=== PATIENT | female | born 1945 | race Two or more races ===

== ENCOUNTER 2025-05-28 11:31 | Emergency (ER) | payer MEDICARE, OTHER ==
[~2025-05-28] VITALS: Ht 160 cm; Wt 55.5 kg
--- NOTE | 2025-05-28 12:31 | DVH ---
CLINICAL HISTORY: sob TECHNIQUE: Single view of the chest was obtained. COMPARISON: None FINDINGS: The heart size and pulmonary vasculature are normal. The lungs are clear. IMPRESSION: NO ACUTE CARDIOPULMONARY PROCESS.
[2025-05-28 13:40] LABS: Hematocrit 43.4 % (36.0-46.0); Hemoglobin 14.8 g/dL (12.2-16.2); Mean Corpuscular Hemoglobin 32.7 pg (28.0-32.0); Mean Corpuscular Volume 96.2 fL (80.0-100.0); Nucleated Red Blood Cells % 0.1 %
[2025-05-28 13:47] LABS: Chloride 103 mmol/L (98-107); Potassium 4.2 mmol/L (3.5-5.1); Sodium 142 mmol/L (136-145)
[2025-05-28 13:48] LABS: Anion Gap 11 (5-15); Calcium 9.6 mg/dL (8.7-10.4); Carbon Dioxide 28 mmol/L (20-31)
[2025-05-28 13:53] LABS: BUN/Creatinine Ratio 11.9 (10.0-20.0); Blood Urea Nitrogen 12 mg/dL (9-23); Glucose 86 mg/dL (74-106)
[2025-05-28 14:33] LABS: Urine Protein, UAD Negative (Negative)
--- NOTE | 2025-05-28 14:46 | ED.PDOC ---
History of Present Illness HPI Comments 79-year-old female presents to the ER with prior medical history of COPD, uses 2 L of O2 at home when needed chief complaint of a fall/shortness of breath. Patient reports on falling two weeks ago but has not having right-sided lung pain when coughing since yesterday. Patient has been having a productive cough with yellow phlegm. Denies any other symptoms at this time. Denies chills, fever, N/V/D, CP. No other associated symptoms, modifiers, recent injuries or sick contacts present at this time. Chief Complaint: Shortness of Breath Time Seen by MD: 12:00 Reviewed Notes: Nurses Notes, Medications, Allergies Allergies: Coded Allergies: NO KNOWN ALLERGIES (Unverified , 05/28/25) Information Source: Patient Mode of Arrival: Ambulatory Severity: Moderate Timing: Hours Duration: Since onset, Hours Prehospital treatment: None Past Medical History PAST MEDICAL HISTORY: COPD Past Medical History (Other): Uses 2 L of O2 when needed Surgical History: Denies all surgeries WATCH GUARD GATE History: No Pertinent WATCH GUARD GATE History Family History Family History: Reviewed,noncontributory to illness, Unknown Social History Smoker: Non-Smoker Alcohol: Denies ETOH Use Drugs: Denies Drug Use Lives In: Home Constitutional: denies: chills, diaphoresis, fatigue, fever, malaise, sweats, weakness, others EENTM: denies: blurred vision, double vision, ear bleeding, ear discharge, ear drainage, ear pain, ear ringing, eye pain, eye redness, hearing loss, mouth pain, mouth swelling, nasal discharge, nose bleeding, nose congestion, nose pain, photophobia, tearing, throat pain, throat swelling, voice changes, others Respiratory: reports: cough, others (Right-sided Lung pain when coughing ); denies: hemoptysis, orthopnea, SOB at rest, shortness of breath, SOB with excertion, stridor, wheezing Cardiovascular: denies: chest pain, dizzy spells, diaphoresis, Dyspnea on exertion, edema, irregular heart beat, left arm pain, lightheadedness, palpitations, PND, syncope, others Gastrointestinal: denies: abdomen distended, abdominal pain, blood streaked bowels, constipated, diarrhea, dysphagia, difficulty swallowing, hematemesis, melena, nausea, poor appetite, poor fluid intake, rectal bleeding, rectal pain, vomiting, others Genitourinary: denies: abnormal vagina bleeding, burning, dyspareunia, dysuria, flank pain, frequency, hematuria, incontinence, pain, , vagina discharge, urgency, others Neurological: denies: dizziness, fainting, headache, left sided numbness, left sided weakness, numbness, paresthesia, pre-existing deficit, right sided numbness, right sided weakness, seizure, speech problems, tingling, tremors, weakness, others Musculoskeletal: denies: back pain, gout, joint pain, joint swelling, muscle pain, muscle stiffness, neck pain, others Integumetry: denies: bruises, change in color, change in hair/nails, dryness, laceration, lesions, lumps, rash, wounds, others Allergic/Immunocompromised: denies: Difficulty Healing, Frequent Infections, Hives, Itching, others Hematologic/Lymphatic: denies: anemia, blood clots, easy bleeding, easy bruising, swollen glands, others Endocrine: denies: excessive hunger, excessive sweating, excessive thirst, excessive urination, flushing, intolerance to cold, intolerance to heat, unexplained weight gain, unexplained weight loss, others Psychiatric: denies: anxiety, bipolar disorder, depression, hopeless, panic disorder, schizophrenia, sleepless, suicidal, others All Other Systems: Reviewed and Negative Physical Exam Exam Comments Ecchymosis of the left face under the eye General Appearance: No Apparent Distress, Normal HEENT: Normal ENT Inspection, Pharynx Normal, TMs Normal Neck: Full Range of Motion, Non-Tender, Normal, Normal Inspection Respiratory: Chest Non-Tender, Lungs Clear, No Accessory Muscle Use, No Respiratory Distress, Normal Breath Sounds Cardiovascular: No Edema, No JVD, No Murmur, No Gallop, Normal Peripheral Pulses, Regular Rate/Rhythm Breast Exam: Deferred Gastrointestinal: No Organomegaly, Non Tender, No Pulsatile Mass, Normal Bowel Sounds, Soft Genitalia: Deferred Pelvic: Deferred Rectal: Deferred Extremities: No calf tenderness, Normal capillary refill, Normal inspection, Normal range of motion, Non-tender, No pedal edema Musculoskeletal : Apperance: Normal Neurologic: Alert, die polisher II-XII nml as Tested, No Motor Deficits, Normal Affect, Normal Mood, No Sensory Deficits Cerebellar Function: Normal Reflexes: Normal Skin: Dry, Normal Color, Warm Lymphatic: No Adenopathy Was a procedure done? Was a procedure done?: No EKG EKG : Pulse Rate (adult): 95 [place]: Normal Cardiac Rhythm: NSR Block: None Hypertrophy: None ST: Normal Differential Dx Considerations may include: See MDM X-Ray, Labs, Meds, VS Vital Signs Date Time Temp Pulse Resp B/P (MAP) Pulse Ox O2 Delivery O2 Flow Rate FiO2 05/28/25 15:50 98.9 100 18 156/77 (103) 85 98.9 05/28/25 14:47 95 05/28/25 11:54 95 05/28/25 11:41 97.7 110 20 120/70 92 97.7 Lab Test 05/28/25 14:09 05/28/25 12:48 05/28/25 12:29 Range/Units Troponin I High Sensitivity 6 6 </=34 ng/L White Blood Count 8.1 4.4-10.8 10^3/uL Red Blood Count 4.51 4.0-5.20 10^6/uL Hemoglobin 14.8 12.2-16.2 g/dL Hematocrit 43.4 36.0-46.0 % Mean Corpuscular Volume 96.2 80.0-100.0 fL Mean Corpuscular Hemoglobin 32.7 H 28.0-32.0 pg Mean Corpuscular Hemoglobin Concent 34.0 32.0-36.0 g/dL Red Cell Distribution Width 13.5 11.8-14.3 % Platelet Count 171 140-450 10^3/uL Mean Platelet Volume 8.9 6.9-10.8 fL Neutrophils (%) (Auto) 78.7 37.0-80.0 % Lymphocytes (%) (Auto) 15.3 10.0-50.0 % Monocytes (%) (Auto) 5.1 0.0-12.0 % Eosinophils (%) (Auto) 0.8 0.0-7.0 % Basophils (%) (Auto) 0.1 0.0-2.0 % Neutrophils # (Auto) 6.4 1.6-8.6 10 ^3/uL Lymphocytes # (Auto) 1.2 0.4-5.4 10 ^3/uL Monocytes # (Auto) 0.4 0-1.3 10 ^3/uL Eosinophils # (Auto) 0.1 0-0.8 10 ^3/uL Basophils # (Auto) 0 0-0.2 10 ^3/uL Nucleated Red Blood Cells 0.1 % Sodium Level 142 136-145 mmol/L Potassium Level 4.2 3.5-5.1 mmol/L Chloride Level 103 98-107 mmol/L Carbon Dioxide Level 28 20-31 mmol/L Anion Gap 11 5-15 Blood Urea Nitrogen 12 9-23 mg/dL Creatinine 1.01 0.550-1.02 mg/dL Glomerular Filtration Rate Calc 57 >90 mL/min BUN/Creatinine Ratio 11.9 10.0-20.0 Serum Glucose 86 74-106 mg/dL Calcium Level 9.6 8.7-10.4 mg/dL Urine Color Yellow Yellow Urine Clarity Clear Clear Urine pH 6.0 5.0-9.0 Urine Specific [place] 1.014 1.001-1.035 Urine Protein Negative Negative Urine Ketones Negative Negative Urine Blood Negative Negative /uL Urine Nitrite Negative Negative Urine Bilirubin Negative Negative Urine Urobilinogen Normal Negative mg/dL Urine Leukocyte Esterase 2+ Negative /uL Urine RBC 1 0 - 4 /hpf Urine Microscopic WBC 17 H 0-5 /HPF Urine Squamous Epithelial Cells Few <5 /hpf Urine Bacteria None seen None Seen /hpf Urine Hyaline Casts Few 0 - 2 /lpf Urine Glucose Normal Normal mg/dL Time of 1ST Reevaluation: 12:30 Reevaluation 1ST: Unchanged Patient Education/Counseling: Diagnosis, Treatment, Prognosis Family Education/Counseling: No Family Present Additional Information MEDICAL DECISION MAKING (HIGH COMPLEXITY 02726): The patient is a 79-year-old female with known COPD who uses 2 L of oxygen as needed at home, presenting with worsening shortness of breath and generalized weakness. Her presentation is consistent with acute on chronic respiratory failure likely secondary to a COPD exacerbation. Data Reviewed / Independent Interpretation: All diagnostic studies obtained in the ED were independently reviewed by me: CBC: benign, no leukocytosis or anemia contributing to dyspnea. BMP: benign, without electrolyte abnormalities or renal dysfunction. Troponin: normal, making acute coronary syndrome less likely. EKG: independently interpreted as nonischemic, without arrhythmia or ischemic changes. Chest X-ray: independently reviewed and benign, without pneumonia, pneumothorax, or acute infiltrates. Despite benign testing, the patient exhibits worsening oxygen requirement beyond her baseline and increased work of breathing, placing her at high risk for respiratory decompensation. Assessment, Differential & Management: Differential diagnosis includes COPD exacerbation, acute on chronic respiratory failure, pneumonia (despite benign imaging), pulmonary embolism, viral respiratory illness, heart failure exacerbation, and metabolic causes of d yspnea. The combination of worsening hypoxia, weakness, and increased oxygen needs strongly indicates COPD exacerbation with acute on chronic respiratory failure. ED management included: Duoneb bronchodilator treatments Systemic steroids to reduce airway inflammation Azithromycin for COPD exacerbation coverage Supplemental oxygen titrated to maintain adequate saturation Continuous cardiac and respiratory monitoring Frequent reassessment of respiratory effort and response to therapy Despite treatment, the patient continues to require oxygen above her baseline with persistent dyspnea, placing her at risk for impending respiratory failure. She requires inpatient admission for continued respiratory support, bronchodilator therapy, steroid taper, monitoring, and escalation if needed (e.g., BiPAP). Risk / Disposition: This is an acute illness with significant risk of morbidity, requiring active management, monitoring, and a decision for hospitalization. The combination of high-risk symptoms, data interpretation, and treatment complexity meets Level 5 MDM criteria. CRITICAL CARE TIME 36 MINUTES A total of 36 minutes of critical care time was provided, exclusive of separately billable procedures. Critical care was required due to the immediate risk of life-threatening deterioration from acute on chronic hypoxic respiratory failure in the setting of COPD exacerbation. Critical care interventions included: Continuous monitoring of respiratory effort and oxygenation Titration and escalation of supplemental oxygen Administration and monitoring of steroids, Duonebs, and azithromycin Frequent bedside reassessments for progression toward respiratory failure Independent interpretation of EKG, CXR, and laboratory studies Development and adjustment of the acute respiratory management plan Coordination of care with nursing staff and the admitting hospital team High-intensity medical decision making throughout her ED stay The patients worsening hypoxia and COPD exacerbation placed her at high risk for respiratory collapse, necessitating critical care. SEPSIS Sepsis Screen Date sepsis recognized/suspect: May 28, 2025 Time Sepsis recognized/suspect: 1145 Recent Procedure: No On Antibiotic Therapy: No Respiratory Rate >20: No Heart Rate >90: No Temp<36 C (96.8 F) or >38.3 C: No SBP <90 or MAP <65 mmHG: No New Acute Mental Status Change: No Is the patient on CPAP, BIPAP,: No Physician Orders Electrocardigram (05/28/25 11:46) Chest Portable (05/28/25 12:03) Azithromycin Tablet (Zithromax Tablet) (05/28/25 16:45) Albuterol Medneb (Ventolin Medneb) (05/28/25 16:45) Ipratropium Medneb (Atrovent Medneb) (05/28/25 16:45) Methylprednisolone Sod Succ (Solu Medrol (05/28/25 16:45) Vital Signs Date Time Temp Pulse Resp B/P (MAP) Pulse Ox O2 Delivery O2 Flow Rate FiO2 05/28/25 15:50 98.9 100 18 156/77 (103) 85 98.9 05/28/25 14:47 95 05/28/25 11:54 95 05/28/25 11:41 97.7 110 20 120/70 92 97.7 Laboratory Tests Test 05/28/25 12:48 White Blood Count 8.1 10^3/uL (4.4-10.8) Departure 1 Departure Time of Disposition: 16:42 Impression: Primary Impression: Acute and chronic respiratory failure Additional Impressions: COPD exacerbation Shortness of breath Disposition: ADMITTED INPATIENT Admit to: Tele Condition: Guarded Critical Care Note Critical Care Time?: Yes Stability Stability form required: No I personally scribed for BRANDON NAIK MD ([email or web address]) on 05/28/25 at 14:46. Electronically submitted by Zana Borja ([place]). I personally scribed for BRANDON NAIK MD ([email or web address]) on 05/28/25 at 14:47. Electronically submitted by Zana Borja ([employer] [place]). BRANDON NAIK MD May 28, 2025 14:46
[2025-05-28] MEDS: IPRATROPIUM BROM 0.5 MG/2.5ML INH SOL NEB ONE (16:53)
[2025-05-28] MEDS: ALBUTEROL SULF 2.5 MG/0.5ML(0.5%) NEB SOLN NEB ONE (16:54)
[2025-05-28] MEDS: AZITHROMYCIN 250 MG TAB PO ONE (16:59)
[2025-05-28] MEDS: methylPREDNISolone SOD SUCC 125 MG/2 ML VL IV ONE (17:00)
[2025-05-28 17:29] VITALS: BP 140/110; PULSE 95; RESP 22; TEMP 98.1; O2SAT 91
--- NOTE | 2025-05-28 19:19 | ECG ---
[facility] Test Date: 2025-05-28 Test Time: 11:54:35 Pat Name: INOCENTE ROSAS Department: [facility] ED Patient ID: [facility]-[id number] Room: Gender: F Gill Box Tender: maranda : 1945 Requested By: BRANDON NAIK Order Number: [id number] Reading MD: Wojciech Cheng Measurements Intervals [place] Rate: 95 P: 85 MI: 135 QRS: 127 QRSD: 129 T: -16 QT: 389 QTc: 489 Interpretive Statements Sinus rhythm Multiple ventricular premature complexes Right atrial enlargement Right bundle branch block Lateral infarct, age indeterminate Electronically Signed On 05-31-2025 17:51:43 PST by Wojciech Cheng Please click the below link to view image of tracing.
== END 2025-05-28 17:27 | disposition left against medical advice (07) ==
LOC: ER 11:31
DX: J96.20 Acute and chronic respiratory failure, unspecified whether with hypoxia or hypercapnia (principal); J44.1 Chronic obstructive pulmonary disease with (acute) exacerbation
CPT/HCPCS: 36415; 71045; 80048; 81001; 84484; 85025; 93005; 94640; 96374; 99285; J2919

== ENCOUNTER 2025-05-30 11:58 | Emergency (ER) | payer MEDICARE ==
[~2025-05-30] VITALS: Ht 165.1 cm; Wt 56.0 kg
[2025-05-30 12:16] VITALS: TEMP 97.8
--- NOTE | 2025-05-30 12:25 | ED.PDOC ---
HPI Comments 79 year old female with PMHx COPD presents to the ED with a chief complaint of chest pain onset 3 days. Patient was seen in this ED on 05/28/25, due to shortness of breath, productive cough with yellow phlegm. Patient was admitted, decided to leave. She states symptoms have worsened, is also experiencing chest pain. Patient returned to ED, states she is willing to be admitted. Denies fever, chills, headache, dizziness, nausea, vomiting, diarrhea, numbness/tingling. No other symptoms or modifying factors present at this time. Chief Complaint: Chest Pain Time Seen by MD: 12:10 Reviewed Notes: Medications, Allergies Allergies: Coded Allergies: NO KNOWN ALLERGIES (Unverified , 05/28/25) Information Source: Patient Mode of Arrival: Ambulatory Severity: Moderate Timing: Days Duration: Since onset Prehospital treatment: None Location: Chest (L) Radiation: No Radiation Quality: Sharp Onset: At Rest Cardiac Risk Factors: Other PE Risk Factors: None History of: None Modifying Factors: Nothing Past Medical History PAST MEDICAL HISTORY: COPD Surgical History: Denies all surgeries TRANSLATOR/INTERPRETER History: No Pertinent TRANSLATOR/INTERPRETER History Family History Family History: Reviewed,noncontributory to illness, Unknown Social History Smoker: Non-Smoker Alcohol: Denies ETOH Use Drugs: Denies Drug Use Lives In: Home Constitutional: denies: chills, diaphoresis, fatigue, fever, malaise, sweats, weakness, others EENTM: denies: blurred vision, double vision, ear bleeding, ear discharge, ear drainage, ear pain, ear ringing, eye pain, eye redness, hearing loss, mouth pain, mouth swelling, nasal discharge, nose bleeding, nose congestion, nose pain, photophobia, tearing, throat pain, throat swelling, voice changes, others Respiratory: denies: cough, hemoptysis, orthopnea, SOB at rest, shortness of breath, SOB with excertion, stridor, wheezing, others Cardiovascular: reports: chest pain; denies: dizzy spells, diaphoresis, Dyspnea on exertion, edema, irregular heart beat, left arm pain, lightheadedness, palpitations, PND, syncope, others Gastrointestinal: denies: abdomen distended, abdominal pain, blood streaked bowels, constipated, diarrhea, dysphagia, difficulty swallowing, hematemesis, melena, nausea, poor appetite, poor fluid intake, rectal bleeding, rectal pain, vomiting, others Genitourinary: denies: abnormal vagina bleeding, burning, dyspareunia, dysuria, flank pain, frequency, hematuria, incontinence, pain, , vagina discharge, urgency, others Neurological: denies: dizziness, fainting, headache, left sided numbness, left sided weakness, numbness, paresthesia, pre-existing deficit, right sided numbness, right sided weakness, seizure, speech problems, tingling, tremors, weakness, others Musculoskeletal: denies: back pain, gout, joint pain, joint swelling, muscle pain, muscle stiffness, neck pain, others Integumetry: denies: bruises, change in color, change in hair/nails, dryness, laceration, lesions, lumps, rash, wounds, others Allergic/Immunocompromised: denies: Difficulty Healing, Frequent Infections, Hives, Itching, others Hematologic/Lymphatic: denies: anemia, blood clots, easy bleeding, easy bruising, swollen glands, others Endocrine: denies: excessive hunger, excessive sweating, excessive thirst, excessive urination, flushing, intolerance to cold, intolerance to heat, unexplained weight gain, unexplained weight loss, others Psychiatric: denies: anxiety, bipolar disorder, depression, hopeless, panic disorder, schizophrenia, sleepless, suicidal, others All Other Systems: Reviewed and Negative Physical Exam General Appearance: Normal HEENT: Normal ENT Inspection, Pharynx Normal, TMs Normal Neck: Full Range of Motion, Non-Tender, Normal, Normal Inspection Respiratory: Chest Non-Tender, Lungs Clear, No Accessory Muscle Use, No Respiratory Distress, Normal Breath Sounds Cardiovascular: No Edema, No JVD, No Murmur, No Gallop, Normal Peripheral Pulses, Regular Rate/Rhythm Breast Exam: Deferred Gastrointestinal: No Organomegaly, Non Tender, No Pulsatile Mass, Normal Bowel Sounds, Soft Genitalia: Deferred Pelvic: Deferred Rectal: Deferred Extremities: No calf tenderness, Normal capillary refill, Normal inspection, Normal range of motion, Non-tender, No pedal edema Musculoskeletal : Apperance: Normal Neurologic: Alert, management tech II-XII nml as Tested, No Motor Deficits, Normal Affect, Normal Mood, No Sensory Deficits Cerebellar Function: Normal Reflexes: Normal Skin: Dry, Normal Color, Warm Lymphatic: No Adenopathy Was a procedure done? Was a procedure done?: No CP Differential Dx Differential Diagnosis: MAT, VT, PAC's Differential Diagnosis: CHF, HTN Essential, HTN Accelerated Differential Diagnosis: Chest Wall Pain, Cholelithiasis X-Ray, Labs, Meds, VS Vital Signs Date Time Temp Pulse Resp B/P (MAP) Pulse Ox O2 Delivery O2 Flow Rate FiO2 05/30/25 15:18 89 05/30/25 13:13 105 05/30/25 12:16 97.8 75 16 139/64 92 97.8 05/30/25 12:04 104 Lab Test 05/30/25 14:24 05/30/25 13:17 Range/Units Troponin I High Sensitivity 7 6 </=34 ng/L White Blood Count 8.1 4.4-10.8 10^3/uL Red Blood Count 4.23 4.0-5.20 10^6/uL Hemoglobin 13.9 12.2-16.2 g/dL Hematocrit 41.3 36.0-46.0 % Mean Corpuscular Volume 97.6 80.0-100.0 fL Mean Corpuscular Hemoglobin 32.8 H 28.0-32.0 pg Mean Corpuscular Hemoglobin Concent 33.6 32.0-36.0 g/dL Red Cell Distribution Width 13.4 11.8-14.3 % Platelet Count 194 140-450 10^3/uL Mean Platelet Volume 8.8 6.9-10.8 fL Neutrophils (%) (Auto) 76.1 37.0-80.0 % Lymphocytes (%) (Auto) 17.1 10.0-50.0 % Monocytes (%) (Auto) 5.3 0.0-12.0 % Eosinophils (%) (Auto) 1.2 0.0-7.0 % Basophils (%) (Auto) 0.3 0.0-2.0 % Neutrophils # (Auto) 6.1 1.6-8.6 10 ^3/uL Lymphocytes # (Auto) 1.4 0.4-5.4 10 ^3/uL Monocytes # (Auto) 0.4 0-1.3 10 ^3/uL Eosinophils # (Auto) 0.1 0-0.8 10 ^3/uL Basophils # (Auto) 0 0-0.2 10 ^3/uL Nucleated Red Blood Cells 0.1 % Sodium Level 142 136-145 mmol/L Potassium Level 3.9 3.5-5.1 mmol/L Chloride Level 106 98-107 mmol/L Carbon Dioxide Level 25 20-31 mmol/L Anion Gap 11 5-15 Blood Urea Nitrogen 16 9-23 mg/dL Creatinine 1.02 0.550-1.02 mg/dL Glomerular Filtration Rate Calc 56 >90 mL/min BUN/Creatinine Ratio 15.7 10.0-20.0 Serum Glucose 107 H 74-106 mg/dL Calcium Level 9.3 8.7-10.4 mg/dL [place] [id number] Ph: [phone] DIAGNOSTIC IMAGING Diagnostic Imaging Report : [id number] Signed PATIENT: INOCENTE ROSAS ACCT: [id number] UNIT: [id number] : 1945 LOC: ER ROOM / BED: / AGE / SEX: 79 / F ADM STATUS: REG ER SERVICE 1248 ORDERING PHYSICIAN: BRANODN ALBA MD PROCEDURE(s): CXRP - CHEST PORTABLE REASON: cp ORDER NUMBER(s): [id number], ACCESSION NUMBER(s): [id number] INDICATION: cp TECHNIQUE: Frontal view of the chest. COMPARISON: XY CHEST PORTABLE on DOS: 05/28/25 FINDINGS: . The heart and mediastinal contours are grossly unremarkable. There is no evidence of pleural disease. The lungs are clear. The bony structures of the chest are intact without fracture. IMPRESSION: 1. No evidence of acute disease. ATED BY: JAMAR BEASLEY MD DICTATED DATE/TIME: 05/30/255 SIGNED BY: JAMAR BEASLEY MD SIGNED DATE/TIME: 05/30/25 132 CC: Time of 1ST Reevaluation: 12:40 Reevaluation 1ST: Unchanged Patient Education/Counseling: Diagnosis, Treatment, Prognosis Family Education/Counseling: No Family Present SEPSIS Sepsis Screen Date sepsis recognized/suspect: May 30, 2025 Time Sepsis recognized/suspect: 1220 Recent Procedure: No On Antibiotic Therapy: No Respiratory Rate >20: No Heart Rate >90: No Temp<36 C (96.8 F) or >38.3 C: No SBP <90 or MAP <65 mmHG: No New Acute Mental Status Change: No Is the patient on CPAP, BIPAP,: No Physician Orders Electrocardigram (05/30/25 15:38) Chest Portable (05/30/25 12:48) Troponin-I Hs (05/30/25 15:48) Vital Signs Date Time Temp Pulse Resp B/P (MAP) Pulse Ox O2 Delivery O2 Flow Rate FiO2 05/30/25 15:18 89 05/30/25 13:13 105 05/30/25 12:16 97.8 75 16 139/64 92 97.8 05/30/25 12:04 104 Laboratory Tests Test 05/30/25 13:17 White Blood Count 8.1 10^3/uL (4.4-10.8) Departure 1 Departure Time of Disposition: 16:03 (Patient is not septic. Patient presented with acute shortness of breath concerning for acute on chronic COPD Exacerbation, Pneumonia, ACS, CHF, Pneumothorax. Less likely PE, Dissection. Data: 1. I ordered and reviewed the result of at least 3 labs including a CBC, BMP, and Troponin. 2. I independently interpreted the following tests: Chest X-ray shows .Risk:This patient has a high risk of morbidity due to further diagnostic testing or treatment and may suffer from respiratory or cardiac etiology . Workup reveals a likely COPD Exacerbation and patient should be admitted for further workup. and possible expert consultation.) Impression: Primary Impression: Acute and chronic respiratory failure Additional Impressions: COPD exacerbation Acute chest pain Disposition: ADMITTED INPATIENT Admit to: Tele Condition: Guarded Critical Care Note Critical Care Time?: Yes Critical care comment: Acute on chronic respiratory failure Authorized and Performed by: Brandon Alba MD Total critical care time: Approximately 38 minutes Due to a high probability of clinically significant, life threatening deterioration, the patient required my highest level of preparedness to intervene emergently and I personally spent this critical care time directly and personally managing the patient. This critical care time included obtaining a history; examining the patient; pulse oximetry; ordering and review of studies; arranging urgent treatment with development of a management plan; evaluation of patient's response to treatment; frequent reassessment; and, discussions with other providers. This critical care time was performed to assess and manage the high probability of imminent, life-threatening deterioration that could result in multi-organ failure. It was exclusive of separately billable procedures and treating other patients and teaching time. Please see my other sections and the rest of the note for further information on patient assessment and treatment. Stability Stability form required: No Heart Score Heart Score: Heart Score Response (Comments) Value History Slightly Suspicious 0 EKG Repolarization Disturb 1 Age >65 2 Risk Factors >3 or Hx ASHD 2 Troponin 1-2 x's Normal limit 1 Total 6 I personally scribed for BRANDON ALBA MD ([email or web address]) on 05/30/25 at 12:25. Electronically submitted by Danette Arreguin ([email or web address]). I personally scribed for BRANDON ALBA MD ([email or web address]) on 05/30/25 at 14:06. Electronically submitted by Danette Arreguin ([email or web address]). BRANDON ALBA MD May 30, 2025 12:25
--- NOTE | 2025-05-30 13:14 | ECG ---
[facility] Test Date: 2025-05-30 Test Time: 13:13:41 Pat Name: INOCENTE ROSAS Department: ED Room: Gender: F Advanced Nursing Professor: gp : 1945 Requested By: BRANDON NAIK Order Number: [id number] Reading MD: Wojciech Cheng Measurements Intervals [place] Rate: 105 P: 80 OR: 128 QRS: 107 QRSD: 119 T: -10 QT: 357 QTc: 472 Interpretive Statements Sinus tachycardia Ventricular premature complex Biatrial enlargement IRBBB and LPFB Lateral infarct, age indeterminate Baseline wander in lead(s) V1,V6 Electronically Signed On 05-31-2025 17:58:23 PST by Wojciech Cheng Please click the below link to view image of tracing.
--- NOTE | 2025-05-30 13:28 | DVH ---
INDICATION: cp TECHNIQUE: Frontal view of the chest. COMPARISON: XY CHEST PORTABLE on DOS: 05/28/25 FINDINGS: . The heart and mediastinal contours are grossly unremarkable. There is no evidence of pleural disease. The lungs are clear. The bony structures of the chest are intact without fracture. IMPRESSION: 1. No evidence of acute disease.
[2025-05-30 13:55] LABS: Hematocrit 41.3 % (36.0-46.0); Hemoglobin 13.9 g/dL (12.2-16.2); Mean Corpuscular Hemoglobin 32.8 pg (28.0-32.0); Mean Corpuscular Volume 97.6 fL (80.0-100.0); Nucleated Red Blood Cells % 0.1 %
[2025-05-30 14:00] LABS: Chloride 106 mmol/L (98-107); Potassium 3.9 mmol/L (3.5-5.1); Sodium 142 mmol/L (136-145)
[2025-05-30 14:01] LABS: Anion Gap 11 (5-15); Calcium 9.3 mg/dL (8.7-10.4); Carbon Dioxide 25 mmol/L (20-31)
[2025-05-30 14:06] LABS: BUN/Creatinine Ratio 15.7 (10.0-20.0); Blood Urea Nitrogen 16 mg/dL (9-23)
[2025-05-30 14:07] LABS: Glucose 107 mg/dL (74-106)
--- NOTE | 2025-05-30 15:19 | ECG ---
[facility] Test Date: 2025-05-30 Test Time: 15:18:14 Pat Name: INOCENTE ROSAS Department: ED Room: Gender: F Interventionist: GP : 1945 Requested By: BRANDON NAIK Order Number: [id number] Reading MD: Wojciech Cheng Measurements Intervals [place] Rate: 89 P: 83 [place]: 133 QRS: 105 QRSD: 123 T: 18 QT: 418 QTc: 509 Interpretive Statements Sinus rhythm Right atrial enlargement Right bundle branch block Probable lateral infarct, old Electronically Signed On 05-31-2025 17:58:42 PST by Wojciech Cheng Please click the below link to view image of tracing.
[2025-05-30 17:22] VITALS: PULSE 104; RESP 20; O2SAT 88
[2025-05-30 17:27] VITALS: BP 176/92; PULSE 104; RESP 18; O2SAT 89
--- NOTE | 2025-05-30 21:43 | ECG ---
[facility] Test Date: 2025-05-30 Test Time: 12:04:53 Pat Name: INOCENTE ROSAS Department: ED Room: Gender: F Hiv Prevention Specialist: REID : [id number] Requested By: BRANDON NAIK Order Number: [id number] Reading MD: Wojciech Cheng Measurements Intervals [place] Rate: 104 P: 86 [place]: 169 QRS: 108 QRSD: 124 T: 11 QT: 374 QTc: 492 Interpretive Statements Sinus tachycardia Atrial premature complex Right atrial enlargement Right bundle branch block Lateral infarct, age indeterminate Electronically Signed On 05-31-2025 17:58:09 PST by Wojciech Cheng Please click the below link to view image of tracing.
== END 2025-05-30 17:31 | disposition left against medical advice (07) ==
LOC: ER 11:58
DX: J96.20 Acute and chronic respiratory failure, unspecified whether with hypoxia or hypercapnia (principal); J44.1 Chronic obstructive pulmonary disease with (acute) exacerbation; R07.89 Other chest pain
CPT/HCPCS: 36415; 71045; 80048; 84484; 85025; 93005; 99291